=== PATIENT | male | born 1950 | race Caucasian/White ===

== ENCOUNTER → 2017-11-25 | Outpatient (CLI) | payer MEDICARE, OTHER ==
[~2017-11-25] MED LIST: ACETAMINOPHEN500 MG PO; ALBU90OI6 INH; ALFU10 PO; ASPI81CH PO; ATOR40TA PO; AXIRON30 MG/1.5 TD; BUDE6HFA INH; CENTRUM SILVER1 EAC4 PO; CETI5 PO; CHOL10002 PO; CLOB.05TO TD; CLOT10 SS; Citrucel500 MG PO; Clobetasol Emol15 GM TOP; Diovan160 MG PO; Econazole Nitra15 GM TD; Econazole Nitra15 GM TOP; FLONASE ALLERG9.9 ML INH; FURO20 PO; Flonase 0.05% N16 GM; HYDCHL12.5 PO; HYDR1TAB94 PO; LEVFLO500 PO; METF500C PO; METO100ER PO; METRIBP PO; MONT10T PO; MUPI1NAS; MUPIROCIN1 GM TOP; NAPR220 PO; NAPR500 PO; NYST100000 TOP; NYST100P TOP; PENNSAID112 GM TD; PENNSAID112 GM TOP; POTCIT10 PO; Prilosec10 M1 PO; TADA10TA PO; UROCIT-K5 MEQ PO; VALS80 PO; ZYRTEC10 M1 PO
== END | disposition home or self-care (01) ==
LOC: PLD 13:19 → LAB SHORT 13:19
DX: C44.311 Basal cell carcinoma of skin of nose (principal)
CPT/HCPCS: 88305

== ENCOUNTER 2018-06-20 05:52 | Day surgery (SDC) | payer MEDICARE, OTHER ==
[~2018-06-20] VITALS: Ht 170.2 cm; Wt 140.6 kg
== END 2018-06-20 23:39 | disposition home or self-care (01) ==
LOC: ORSCMMR 05:52 → ORD 07:30 → ORSCMMR 07:30
PROVIDERS: Internal Medicine Gastroenterology
PROC: 0DBL8ZX Excision of Transverse Colon, Via Natural or Artificial Opening Endoscopic, Diagnostic (ICD-10-PCS; principal; 2018-06-20 07:30)
DX: Z12.11 Encounter for screening for malignant neoplasm of colon (principal); Z86.010 Personal history of colon polyps; D12.3 Benign neoplasm of transverse colon; K57.30 Diverticulosis of large intestine without perforation or abscess without bleeding; K64.8 Other hemorrhoids; I10 Essential (primary) hypertension; J44.9 Chronic obstructive pulmonary disease, unspecified; G47.33 Obstructive sleep apnea (adult) (pediatric); K21.9 Gastro-esophageal reflux disease without esophagitis; Z87.891 Personal history of nicotine dependence; E11.9 Type 2 diabetes mellitus without complications; E66.01 Morbid (severe) obesity due to excess calories; Z68.42 Body mass index [BMI] 45.0-49.9, adult; Z79.82 Long term (current) use of aspirin; Z79.899 Other long term (current) drug therapy
CPT/HCPCS: 82947; J7120

== ENCOUNTER → 2018-06-23 | Outpatient (CLI) | payer MEDICARE, OTHER | END | disposition home or self-care (01) | LOC: PLD 15:28 → LAB SHORT 15:28 | DX: D48.5 Neoplasm of uncertain behavior of skin (principal) | CPT/HCPCS: 88305 ==

== ENCOUNTER → 2020-12-05 | Outpatient (CLI) | payer MEDICARE, BC ==
[~2020-12-05] MED LIST changes: +AMLO10 PO; +ATOR20 PO; +CENTRUM SILVER1 EAC2 PO; +CHLO25B PO; +FISH OIL 1,2001 EAC4 PO; +FURO20; +GLUC500 PO; +LOSA50 PO; +METF500 PO; +MONTELUKAST SOD10 M1 PO; +OMEP20ER PO; +POTA10T PO; +SILD25T PO; +TIOT18 INH; +TOCO1000 PO; +Testopel75 MG; +VITAMIN B122500 MCG PO; +VITAMIN B6 PO; +VITAMIN D325 MCG PO; +ZYRTEC10 M2 PO
== END | disposition home or self-care (01) ==
LOC: LAB SHORT 11:57 → PLD 11:57
DX: L28.1 Prurigo nodularis (principal)
CPT/HCPCS: 88305; 88312

== ENCOUNTER → 2021-08-28 | Outpatient (CLI) | payer MEDICARE, BC | END | disposition home or self-care (01) | LOC: LAB SHORT 12:05 → LAB 12:05 | DX: C44.311 Basal cell carcinoma of skin of nose (principal) | CPT/HCPCS: 88305 ==

== ENCOUNTER → 2021-11-08 | Outpatient (CLI) | payer MEDICARE, BC | END | disposition home or self-care (01) | LOC: LAB SHORT 07:55 | DX: D48.5 Neoplasm of uncertain behavior of skin (principal) | CPT/HCPCS: 88305 ==

== ENCOUNTER → 2023-09-10 | Outpatient (CLI) | payer MEDICARE, BC | LOC: LAB SHORT 13:18 → PLD 13:18 | DX: L57.0 Actinic keratosis (principal) | CPT/HCPCS: 88305; 88312 ==